=== PATIENT | male | born 1980 | race Two or more races ===

== ENCOUNTER 2020-08-01 04:38 | Inpatient (IN) | payer SELFPAY ==
[~2020-08-01] VITALS: Ht 177.8 cm; Wt 63.0 kg
[2020-08-01 04:52] VITALS: BP 128/75
--- NOTE | 2020-08-01 04:54 | NUR ---
ED Nurse Note: walked in to ed c/o abscess on left buttock onset 1 wk ago. vss, nad, aaox4, ambulatory, ermd at bedside
--- NOTE | 2020-08-01 04:57 | Emergency Room Report ---
History of Present Illness General Chief Complaint: Skin Rash/Abscess Source: Patient Present Illness HPI 40-year-old male with no past medical history. He presents with chief complaint of an abscess. Onset for about a week now. He started draining in the last couple days. It involves his left butt cheek. Painful. Worse with sitting down. Better with lying on his belly. He said he has intermittent subjective fever. No nausea no vomiting. Denies any trauma. Never had this problem before. Allergies: Coded Allergies: No Known Allergies (Unverified , 08/01/20) COVID-19 Screening Contact w/high risk pt: No Experienced COVID-19 symptoms?: No COVID-19 Testing performed CUSTOMER SERVICE CLERK: No Patient History Past Medical History: see triage record, old chart reviewed Past Surgical History: none Pertinent Family History: none Social History: Denies: smoking Immunizations: other Reviewed Nursing Documentation: PMH: Agreed; PSxH: Agreed Nursing Documentation-PMH Past Medical History: No Stated History Review of Systems Eye: Denies: eye pain, blurred vision ENT: Denies: ear pain, nose congestion, throat swelling Respiratory: Denies: cough, shortness of breath Cardiovascular: Denies: chest pain, palpitations Gastrointestinal: Denies: abdominal pain, diarrhea, nausea, vomiting Musculoskeletal: Denies: back pain, joint pain Skin: Denies: rash Neurological: Denies: headache, numbness Endocrine: Denies: increased thirst, increased urine Hematologic/Lymphatic: Denies: easy bruising All Other Systems: negative except mentioned in HPI Physical Exam Vital Signs Date Time Temp Pulse Resp B/P (MAP) Pulse Ox O2 Delivery O2 Flow Rate FiO2 08/01/20 04:46 98.8 97 18 126/71 (89) 99 Room Air Vitals normal Sp02 EP Interpretation: reviewed, normal General Appearance: well appearing, no apparent distress, alert Head: normocephalic, atraumatic Eyes: bilateral eye PERRL, bilateral eye EOMI ENT: hearing grossly normal, normal pharynx Neck: full range of motion, supple, no meningismus Respiratory: chest non-tender, lungs clear, normal breath sounds Cardiovascular #1: regular rate, rhythm, no murmur Gastrointestinal: normal bowel sounds, non tender, no mass, no organomegaly, no bruit, non-distended Rectal: other - Left buttock: Almost resolved buttocks is indurated and erythematous. There is a large ulcerated area of about 3 cm with purulent drainage. Musculoskeletal: back normal, normal range of motion, gait/station normal Psychiatric: mood/affect normal Procedures Incision and Drainage Incision and Drainage : Consent: Verbal Site: left buttock Blade Size: 15 I & D Procedure: betadine prep, sterile drapes applied Wound Location: other - buttock Anesthesia: 1% Lidocaine Volume Anesthetic (ccs): 15 Patient Tolerated: Well Complications: None Progress Area cleaned with Betadine. Local anesthetic 1% lidocaine without epinephrine. I debrided the necrotic area. There is extensive necrosis of the tissue. There is small to moderate amount of pus expressed. There is a lot of indurated tissue. Area then packed with gauze. Patient tolerated procedure well no problem. Medical Decision Making Diagnostic Impression: Primary Impression: Left buttock abscess ER Course Patient with extensive abscess and cellulitis of his left buttock. There is a large amount of necrotic tissue. This abscess involved 80 to 90% of the buttock area. It does not appear to be crossing midline. Because of the extensive area of abscess and necrotic tissue, I will order CT scan and put patient in for admission. He will probably need further debridement in the OR. Last Vital Signs Date Time Temp Pulse Resp B/P (MAP) Pulse Ox O2 Delivery O2 Flow Rate FiO2 08/01/20 04:52 98.7 96 18 128/75 99 Room Air Status: improved Disposition: ADMITTED INPATIENT Condition: Serious James Burrows MD Aug 01, 2020 04:57
[2020-08-01] MEDS ORDERED: Clindamycin 600mg 50 ML IV ONE (05:00)
[2020-08-01] MEDS ORDERED: HYDROmorphone 1mg/ml Carpuject ONE (05:23)
[2020-08-01] MEDS ORDERED: Vancomycin 1.5gm/NS Premix 275 ML IVPB ONE (05:45)
[2020-08-01] MEDS ORDERED: HYDROmorphone 1mg/ml Carpuject IVP ONE ×2 (05:45)
[2020-08-01] MEDS ORDERED: Omnipaque-300 100ml vial INJ ONE (05:45)
[2020-08-01 05:55] LABS: HEMATOCRIT 39.3 % (42.0-52.0); HEMOGLOBIN 13.3 G/DL (14.2-18.0); MEAN CORPUSCULAR VOLUME 96 FL (80-99); PLATELET COUNT 453 K/UL (150-450); RED CELL DISTRIBUTION WIDTH 12.7 % (11.6-14.8); WHITE BLOOD COUNT 19.1 K/UL (4.8-10.8)
[2020-08-01 06:03] LABS: ANION GAP 9 mmol/L (5-15); BLOOD UREA NITROGEN 22 mg/dL (7-18); CALCIUM 8.7 MG/DL (8.5-10.1); CARBON DIOXIDE 28 MMOL/L (21-32); CHLORIDE 97 MMOL/L (98-107); CREATININE 1.1 MG/DL (0.55-1.30); POTASSIUM 3.5 MMOL/L (3.5-5.1); SODIUM 134 MMOL/L (136-145)
--- NOTE | 2020-08-01 06:29 | NUR ---
ED Nurse Note: Patient taken to CT in stable condition
[2020-08-01 07:00] VITALS: BP 133/71
--- NOTE | 2020-08-01 07:06 | NUR ---
HAND-OFF: Report given to JAMISON Dos Santos.
--- NOTE | 2020-08-01 07:22 | NUR ---
ED Nurse Note: Report received from JAMISON Guardado. Pt lying comfortably in bed with no signs of distress. A+Ox4, respirations even and unlabored on room air. Vitals stable as documented. Pt receiving IV abx.
--- NOTE | 2020-08-01 07:28 | Diagnostic Imaging Report ---
EXAM: CT Abdomen and Pelvis With Intravenous Contrast CLINICAL HISTORY: ABSCESS TECHNIQUE: Axial computed tomography images of the abdomen and pelvis with intravenous contrast. CTDI is 3.6 mGy and DLP is 185.7 mGy-cm. One or more of the following dose reduction techniques were used: automated exposure control, adjustment of the mA and/or kV according to patient size, use of iterative reconstruction technique. COMPARISON: No relevant prior studies available. FINDINGS: Lung bases: Unremarkable. No mass. No consolidation. ABDOMEN: Liver: Unremarkable. No mass. Gallbladder and bile ducts: Unremarkable. No calcified stones. No ductal dilation. Pancreas: Unremarkable. No mass. No ductal dilation. Spleen: Unremarkable. No splenomegaly. Adrenals: Unremarkable. No mass. Kidneys and ureters: Unremarkable. No solid mass. No hydronephrosis. Stomach and bowel: Unremarkable. No obstruction. No mucosal thickening. PELVIS: Appendix: No findings to suggest acute appendicitis. Bladder: Unremarkable. No mass. Reproductive: Unremarkable as visualized. ABDOMEN and PELVIS: Intraperitoneal space: Unremarkable. No free air. No significant fluid collection. Bones/joints: No acute fracture. No dislocation. Soft tissues: There is a large cutaneous defect within the left gluteus, with adjacent subcutaneous fat stranding and edema. Packing material seen within the defect. Findings are consistent with a debrided abscess at this site. There is no adjacent soft tissue gas. Mild edema of the underlying left gluteus femi muscle. Vasculature: Unremarkable. No abdominal aortic aneurysm. Lymph nodes: Unremarkable. No enlarged lymph nodes. IMPRESSION: Debrided left gluteal abscess with packing material in place. Adjacent infiltrative changes within the left gluteal subcutaneous fat. No evidence of soft tissue gas.
[2020-08-01 09:00] VITALS: BP 124/73
--- NOTE | 2020-08-01 09:14 | NUR ---
ED Nurse Note: belongings list done. Pt had drug paraphernalia in his backpack including glass pipe. He also had a large tool and 3 e-cigaretes. All placed in security valuables bag. Will give to security. Receipt # [id number]
--- NOTE | 2020-08-01 09:27 | NUR ---
ED Nurse Note: Report given to JAMISON El on 4E. Valuable bag being endorsed to Nik[employer] d/t security [facility] warehouse consultant and she is in a meeting.
--- NOTE | 2020-08-01 09:35 | NUR ---
ED Nurse Note: Pt transferred safely to 4E. Pt transferred with all belongings. Valuables bag endorsed to accepting nurse.
--- NOTE | 2020-08-01 10:00 | NUR ---
NURSE NOTES: Received report from Raya in ER. Patient transferred via gurney, AAOx4, VS stable, able to make needs known. IV site patent and intact. Patient oriented to room. On room air, breathing is even and unlabored with no acute respiratory distress noted at this time. Skin is intact except for abscess on left buttocks, wound is swollen, with depth of 5cm and no presence of tunneling. RN changed wound dressing, rinses with NS, packed wound with wet gauze and covered with optifoam. Belongins were checked and signed with patient. Patient has drug paraphernalia and vape pens, as well as pliers and universal took kit. RN took belongings and placed in nursing station awaiting decision of security to take items. Patient is cooperative and ambulatory with steady gait. Bed is locked and placed in lowest position. Call light within reach. Will continue to monitor
[2020-08-01 12:00] VITALS: BP 121/73
[2020-08-01] MEDS: Piperacillin/Tazobactam 3.375 GM in NS 110 ML IVPB SCH ×2 (13:15→21:17)
--- NOTE | 2020-08-01 13:30 | Consultation ---
History of Present Illness General Date patient seen: Aug 01, 2020 Reason for Hospitalization: Skin Rash/Abscess Present Illness HPI This is a 40-year-old male otherwise healthy presents [facility] with left buttock cheek abscess. About a week. States has been growing causing 7 days ago where and worsening. Daughter get better on its own but it did not. In emergency department had debridement by ED physician for necrotic abscess wound. Surgical to eval and assist with care upon admission. Patient on IV antibiotics. Allergies: Coded Allergies: No Known Allergies (Unverified , 08/01/20) COVID-19 Screening Contact w/high risk pt: No Experienced COVID-19 symptoms?: No Patient History History Provided By: Patient Healthcare decision maker Resuscitation status Advanced Directive on File Past Medical/Surgical History Past Medical/Surgical History: (1) Left buttock abscess Review of Systems Review of Symptoms General ROS: no weight loss or fever Psychological ROS: no depression or mood changes, no memory loss Ophthalmic ROS: no visual changes or eye irritation ENT ROS: no nasal congestion, hearing loss, dizziness Allergy and Immunology ROS: no allergic symptoms or urticaria Hematological and Lymphatic ROS: no swollen glands, unusual bleeding or bruising Endocrine ROS: no polyuria, polydipsia, weight changes, temperature intolerance Respiratory ROS: no cough, shortness of breath, or wheezing Cardiovascular ROS: no chest pain or dyspnea on exertion Gastrointestinal ROS: denies abdominal pain, bright red blood in stool. Musculoskeletal ROS: no myalgias or arthralgias Neurological ROS: no TIA or stroke symptoms Dermatological ROS: no new or changing skin lesions, rashes or pruritis Physical Exam Physical Exam General appearance: alert, cooperative, no distress, appears stated age Head: Normocephalic, without obvious abnormality, atraumatic Eyes: conjunctivae/corneas clear. PERRL, EOM's intact. Fundi benign Throat: Lips, mucosa, and tongue normal. Teeth and gums normal Neck: supple, symmetrical, trachea midline, no adenopathy, thyroid: not enlarged, symmetric, no tenderness/mass/nodules, no carotid bruit and no JVD Lungs: clear to auscultation bilaterally Heart: regular rate and rhythm, S1, S2 normal, no murmur, click, rub or gallop Abdomen: soft, non-tender. Bowel sounds normal. No masses, no organomegaly Extremities: extremities normal, atraumatic, no cyanosis or edema Pulses: 2+ and symmetric Skin: Skin see below Neurologic: Grossly normal Last 24 Hour Vital Signs Date Time Temp Pulse Resp B/P (MAP) Pulse Ox O2 Delivery O2 Flow Rate FiO2 08/01/20 12:00 97.5 80 18 121/73 (89) 99 08/01/20 09:58 Room Air 08/01/20 09:35 98.3 89 20 133/88 98 Room Air 08/01/20 09:00 98.1 93 20 124/73 96 Room Air 08/01/20 07:00 98.5 91 18 133/71 98 Room Air 08/01/20 06:14 98.7 08/01/20 06:14 98.7 08/01/20 04:52 98.7 96 18 128/75 99 Room Air 08/01/20 04:46 98.8 97 18 126/71 (89) 99 Room Air Intake and Output 07/31/20 08/01/20 19:00 07:00 Intake Total 0 ml Balance 0 ml Intake Oral 0 ml Laboratory Tests Test 08/01/20 05:35 White Blood Count 19.1 K/UL (4.8-10.8) H Red Blood Count 4.10 M/UL (4.70-6.10) L Hemoglobin 13.3 G/DL (14.2-18.0) L Hematocrit 39.3 % (42.0-52.0) L Mean Corpuscular Volume 96 FL (80-99) Mean Corpuscular Hemoglobin 32.4 PG (27.0-31.0) H Mean Corpuscular Hemoglobin Concent 33.8 G/DL (32.0-36.0) Red Cell Distribution Width 12.7 % (11.6-14.8) Platelet Count 453 K/UL (150-450) H Mean Platelet Volume 4.6 FL (6.5-10.1) L Neutrophils (%) (Auto) % (45.0-75.0) Lymphocytes (%) (Auto) % (20.0-45.0) Monocytes (%) (Auto) % (1.0-10.0) Eosinophils (%) (Auto) % (0.0-3.0) Basophils (%) (Auto) % (0.0-2.0) Differential Total Cells Counted 100 Neutrophils % (Manual) 80 % (45-75) H Lymphocytes % (Manual) 12 % (20-45) L Monocytes % (Manual) 8 % (1-10) Eosinophils % (Manual) 0 % (0-3) Basophils % (Manual) 0 % (0-2) Band Neutrophils 0 % (0-8) Platelet Estimate Adequate Platelet Morphology Normal Sodium Level 134 MMOL/L (136-145) L Potassium Level 3.5 MMOL/L (3.5-5.1) Chloride Level 97 MMOL/L (98-107) L Carbon Dioxide Level 28 MMOL/L (21-32) Anion Gap 9 mmol/L (5-15) Blood Urea Nitrogen 22 mg/dL (7-18) H Creatinine 1.1 MG/DL (0.55-1.30) Estimat Glomerular Filtration Rate > 60 mL/min (>60) Glucose Level 122 MG/DL (74-106) H Lactic Acid Level 1.60 mmol/L (0.4-2.0) Calcium Level 8.7 MG/DL (8.5-10.1) Height (Feet): 5 Height (Inches): 10.00 Weight (Pounds): 160 Medications Current Medications Medications (Trade) Dose Ordered Sig/Harmeet Route PRN Reason Start Time Stop Time Status Last Admin Dose Admin Acetaminophen (Tylenol) 650 mg Q4H PRN ORAL Mild Pain (Pain Scale 1-3) 08/01/20 10:45 08/31/20 10:44 Al Hydroxide/Mg Hydroxide (Mylanta) 30 ml Q4H PRN ORAL acid reflux 08/01/20 10:45 08/31/20 10:44 Pantoprazole (Protonix) 40 mg DAILY ORAL 08/01/20 10:45 08/31/20 10:44 08/01/20 11:02 Piperacillin Sod/ Tazobactam Sod 3.375 gm/Sodium Chloride 110 ml @ 27.5 mls/hr Q8HR IVPB 08/01/20 14:00 08/08/20 13:59 08/01/20 13:15 [facility] 1 ea DAILY PRN MISC Per rx protocol 08/01/20 10:45 08/31/20 10:44 Vancomycin/Sodium Chloride 275 ml @ 137.5 mls/ hr Q12HR@0600,1800 IVPB 08/01/20 18:00 08/06/20 17:59 Assessment/Plan Problem List: (1) Left buttock abscess Assessment & Plan: This is a 40-year-old male with a large left buttock abscess which grew to potential with necrotic of the skin approximately 4 cm x 4 cm an abscess cavity which required drainage in emergency department and debridement which was done by emergency department physician. Right now there is an open wound in the left buttock cheek approximately 4 cm x 4 cm of 4 cm deep with the nonviable tissue already removed and now significant cellulitis and edema and erythema and tenderness. Patient admitted further care and management. Wound cleansed at bedside and packing and dressings applied. Continue with wet-to-dry packing and dressings 3 times daily and as needed saturation. Will follow progression. If required further debridement will proceed otherwise we will continue with local wound care until cellulitis resolves. Thank you for let me participation's care will follow with recommendations continue antibiotics per infectious disease ABDOMEN: Liver: Unremarkable. No mass. Gallbladder and bile ducts: Unremarkable. No calcified stones. No ductal dilation. Pancreas: Unremarkable. No mass. No ductal dilation. Spleen: Unremarkable. No splenomegaly. Adrenals: Unremarkable. No mass. Kidneys and ureters: Unremarkable. No solid mass. No hydronephrosis. Stomach and bowel: Unremarkable. No obstruction. No mucosal thickening. PELVIS: Appendix: No findings to suggest acute appendicitis. Bladder: Unremarkable. No mass. Reproductive: Unremarkable as visualized. ABDOMEN and PELVIS: Intraperitoneal space: Unremarkable. No free air. No significant fluid collection. Bones/joints: No acute fracture. No dislocation. Soft tissues: There is a large cutaneous defect within the left gluteus, with adjacent subcutaneous fat stranding and edema. Packing material seen within the defect. Findings are consistent with a debrided abscess at this site. There is no adjacent soft tissue gas. Mild edema of the underlying left gluteus femi muscle. Vasculature: Unremarkable. No abdominal aortic aneurysm. Lymph nodes: Unremarkable. No enlarged lymph nodes. IMPRESSION: Debrided left gluteal abscess with packing material in place. Adjacent infiltrative changes within the left gluteal subcutaneous fat. No evidence of soft tissue gas. ICD Codes: L02.31 - Cutaneous abscess of buttock SNOMED: [id number] Felix Farias Aug 01, 2020 13:30
--- NOTE | 2020-08-01 14:45 | Consultation ---
DATE OF CONSULTATION: 08/01/2020 INFECTIOUS DISEASE CONSULTATION CONSULTING PHYSICIAN: Arlene Cabello MD. REFERRING PHYSICIAN: Nemesio River MD. REASON FOR CONSULTATION: Buttock abscess. HISTORY OF PRESENTING ILLNESS: This is a 40-year-old gentleman with history of appendectomy and hernia repair, who came in with left buttock pain. He was found to have an abscess, which started draining. He underwent a CT scan, which showed an extensive abscess with necrotic tissue. An Infectious Diseases consultation has been obtained for antibiotics. PAST MEDICAL HISTORY: 1. History of appendectomy. 2. History of hernia repair. SOCIAL HISTORY: He is a smoker. He drinks alcohol. He smokes marijuana. FAMILY HISTORY: Noncontributory. REVIEW OF SYSTEMS: RESPIRATORY: No fever, chills, cough, shortness of breath, or chest pain. CARDIAC: No chest pain. No palpitation. No dizziness. No syncope. GASTROINTESTINAL: No nausea. No vomiting. He does have left buttock pain. No diarrhea. MEDICATIONS: As an inpatient, he is on vancomycin, Zosyn, Protonix, Mylanta, Tylenol. ALLERGIES: No known drug allergies. PHYSICAL EXAMINATION: VITAL SIGNS: Temperature 98.1 T-max of 98.8, pulse 93, respiratory rate 20, and blood pressure 124/73. O2 saturation of 96% on room air. HEENT: Pupils are equally reactive to light and accommodation. Mouth appears clean without thrush. NECK: Supple. No adenopathy. No JVD. CARDIOVASCULAR: Regular rate and rhythm. No murmurs. LUNGS: Clear to auscultation bilaterally. No crackles. No wheezes. ABDOMEN: Soft, nontender. Left buttock drainage noted. EXTREMITIES: No cyanosis, no clubbing, no edema. LABORATORY AND DIAGNOSTIC DATA: White count of 19.1, hemoglobin 13.3, hematocrit 39.3, MCV 96, platelet count of 453,000 with neutrophils of 80%. Sodium 134, potassium 3.5, chloride 97, bicarb 28, BUN 22, creatinine 1.1. Glucose 122. Calcium of 8.7. Wound cultures are pending. CT pelvis showing debrided left gluteal abscess with packing, adjacent infiltrative changes noted. ASSESSMENT: This is a 40-year-old gentleman with history of inguinal hernia repair and appendectomy, who comes in with left buttock swelling and drainage and is found to have, 1. Left buttock abscess. Cultures are pending. 2. History of appendectomy. 3. Leukocytosis. PLAN: 1. Continue IV vancomycin and Zosyn. 2. Surgery evaluation is pending. 3. We will follow up cultures and adjust antibiotics accordingly. I would like to thank Dr. River for this consultation. Arlene Cabello M.D. DR: TEJAS JOB#: [id number] CC:
[2020-08-01] MEDS: Vancomycin 1.5gm/NS Premix q24h IVPB SCH (17:17)
--- NOTE | 2020-08-01 18:00 | History and Physical Report ---
DATE OF ADMISSION: 08/01/2020 REASON FOR ADMISSION: Buttock abscess. HISTORY: This is a 40-year-old gentleman with history of prior appendectomy, hernia repair. The patient presents with left buttock pain. He is noted to have significant abscess that is indurated as well. The patient underwent a CT scan confirming the abscess with necrotic tissue. The patient underwent debridement in the emergency room and now will be admitted for further antibiotics and further surgical evaluation. PAST MEDICAL HISTORY: Appendectomy, hernia repair. SOCIAL HISTORY: The patient is a smoker. He does drink. FAMILY HISTORY: Noncontributory. REVIEW OF SYSTEMS: Otherwise negative. PHYSICAL EXAMINATION: GENERAL: A well-developed male. The patient is currently afebrile. VITAL SIGNS: Stable. LUNGS: Otherwise clear. CARDIAC: S1, S2. Regular rate and rhythm. ABDOMEN: Soft, nontender. EXTREMITIES: No edema. Buttock is dressed at this time. LABORATORY DATA: Reviewed. White count 19. Sodium 134, BUN 22. CT pelvis, left gluteal abscess. IMPRESSION: Left buttock abscess, status post incision and drainage, appendectomy, leukocytosis, possible sepsis. RECOMMENDATION: ID evaluation, surgical evaluation with debridement as needed. Follow up cultures and exam. Follow up labs, and we will discuss with consultants as to further recommendations and plan of care. Nemesio River M.D. DR: JEWELL JOB#: [id number] CC:
--- NOTE | 2020-08-01 19:13 | NUR ---
NURSE HAND-OFF: Important Events on Shift: admission, wound dressing done Patient Status: stable Diet: regular Pending Orders: n/a Pending Results/Labs:n/a Pending MD notification:n/a Latest Vital Signs: Temperature 97.5 , Pulse 80 , B/P 121 /73 , Respiratory Rate 18 , O2 SAT 99 , Room Air, O2 Flow Rate . Vital Sign Comment: stable Latest Argueta Fall Score: 35 Fall Risk: Medium Risk Safety Measures: Call light Within Reach, Bed Alarm , Side Rails Side Rails x2, Bed position Low and Locked. Fall Precautions: Patient Fall Education Report given to JAMISON Rodriguez.
--- NOTE | 2020-08-01 19:30 | NUR ---
NURSE NOTES: Patient awake in bed, alert and oriented x4, on room air. With IV access on right forearm. Instructed to use call light for assistance. Bed in lowest and lock engaged. Will continue to monitor.
[2020-08-01 20:00] VITALS: BP 119/74
[2020-08-02] VITALS: BP 123/68
[2020-08-02 04:00] VITALS: BP 109/73
[2020-08-02] MEDS: Vancomycin 1.5gm/NS Premix q24h IVPB SCH ×2 (04:43→18:18)
--- NOTE | 2020-08-02 06:30 | NUR ---
NURSE NOTES: Dressing changed.
[2020-08-02] MEDS: Piperacillin/Tazobactam 3.375 GM in NS 110 ML IVPB SCH ×2 (06:34→13:32)
[2020-08-02 06:47] LABS: ANION GAP 6 mmol/L (5-15); BLOOD UREA NITROGEN 9 mg/dL (7-18); CALCIUM 8.3 MG/DL (8.5-10.1); CARBON DIOXIDE 29 MMOL/L (21-32); CHLORIDE 102 MMOL/L (98-107); POTASSIUM 3.2 MMOL/L (3.5-5.1); SODIUM 137 MMOL/L (136-145)
[2020-08-02 07:35] LABS: BASOPHILS % (AUTO) 1.3 % (0.0-2.0); EOSINOPHILS % (AUTO) 1.9 % (0.0-3.0); HEMATOCRIT 39.6 % (42.0-52.0); HEMOGLOBIN 13.2 G/DL (14.2-18.0); MEAN CORPUSCULAR VOLUME 93 FL (80-99); MONOCYTES % (AUTO) 7.6 % (1.0-10.0); NEUTROPHILS % (AUTO) 69.1 % (45.0-75.0); PLATELET COUNT 450 K/UL (150-450); RED BLOOD COUNT 4.28 M/UL (4.70-6.10); RED CELL DISTRIBUTION WIDTH 12.7 % (11.6-14.8); WHITE BLOOD COUNT 11.3 K/UL (4.8-10.8)
--- NOTE | 2020-08-02 07:50 | NUR ---
NURSE NOTES: PT AXOX4, CALM, RESTING IN BED. PT DENIES PAIN OR SOB/DIZZINESS WHEN AMBULATING TO BATHROOM. PT EDUCATED ON CARE PLAN FOR TODAY. PT VERBALIZED UNDERSTANDING. CALL LIGHT WITHIN REACH. BED IN LOWEST POSITION WITH BEDSIDE RAILS X2 RAISED. WILL CONTINUE TO MONITOR.
--- NOTE | 2020-08-02 07:55 | NUR ---
NURSE HAND-OFF: Important Events on Shift: Dressing changed, antibiotic treatment Patient Status: Diet: Pending Orders: Pending Results/Lab: Pending MD notification: Latest Vital Signs: Temperature 97.9 , Pulse 86 , B/P 109 /73 , Respiratory Rate 20 , O2 SAT 98 , Room Air, O2 Flow Rate . Vital Sign Comment: Latest Argueta Fall Score: 35 Fall Risk: Medium Risk Safety Measures: Call light Within Reach, Bed Alarm , Side Rails Side Rails x2, Bed position Low and Locked. Fall Precautions: Yellow Socks Door Sign Patient Fall Education Report given to JAMISON Oliva.
[2020-08-02 08:00] VITALS: BP 108/65
--- NOTE | 2020-08-02 09:54 | General Progress Note ---
Subjective Allergies: Coded Allergies: No Known Allergies (Unverified , 08/01/20) Subjective care noted no change overall Objective Last 24 Hour Vital Signs Date Time Temp Pulse Resp B/P (MAP) Pulse Ox O2 Delivery O2 Flow Rate FiO2 08/02/20 08:00 98.2 97 16 108/65 (79) 97 08/02/20 04:00 97.9 86 20 109/73 (85) 98 08/02/20 00:00 98.2 87 18 123/68 (86) 98 08/01/20 21:00 Room Air 08/01/20 20:00 99.0 92 22 119/74 (89) 100 08/01/20 12:00 97.5 80 18 121/73 (89) 99 08/01/20 09:58 Room Air Intake and Output 08/01/20 08/02/20 19:00 07:00 Intake Total 840 ml 300 ml Balance 840 ml 300 ml Intake Oral 840 ml 300 ml # Voids 2 2 Laboratory Tests 08/02/20 06:11: White Blood Count 11.3H, Red Blood Count 4.28L, Hemoglobin 13.2L, Hematocrit 39.6L, Mean Corpuscular Volume 93, Mean Corpuscular Hemoglobin 30.8, Mean Corpuscular Hemoglobin Concent 33.2, Red Cell Distribution Width 12.7, Platelet Count 450, Mean Platelet Volume 4.7L, Neutrophils (%) (Auto) 69.1, Lymphocytes (%) (Auto) 20.0, Monocytes (%) (Auto) 7.6, Eosinophils (%) (Auto) 1.9, Basophils (%) (Auto) 1.3, Sodium Level 137, Potassium Level 3.2L, Chloride Level 102, Carbon Dioxide Level 29, Anion Gap 6, Blood Urea Nitrogen 9, Creatinine 1.0, E stimat Glomerular Filtration Rate > 60, Glucose Level 172H, Calcium Level 8.3L Height (Feet): 5 Height (Inches): 10.00 Weight (Pounds): 160 Assessment/Plan Assessment/Plan: IMPRESSION: Left buttock abscess, status post incision and drainage, appendectomy, leukocytosis, possible sepsis. RECOMMENDATION: ID evaluation, surgical evaluation with debridement as needed. Follow up cultures and exam. Follow up labs, and we will discuss with consultants as to further recommendations and plan of care. Nemesio River MD Aug 02, 2020 09:54
[2020-08-02 12:00] VITALS: BP 119/77
--- NOTE | 2020-08-02 13:57 | NUR ---
NURSE NOTES: LEFT BUTTOCK DRESSING CHANGE DONE AT BEDSIDE AT 1100 HRS. PT TOLERATED WELL. IN NO APPARENT DISTRESS AT THIS TIME. WILL CONTINUE TO MONITOR.
--- NOTE | 2020-08-02 14:41 | NUR ---
CASE MANAGEMENT:INITIAL REVIEW 40 YR OLD MALE WALKED IN TO ER CC;SKIN RASH. ABSCESS. SI;LEFT BUTTOCK ABSCESS. 98.7 97 18 133/71 96% ON RA WBC 19.1 PLT 453 NA 134 BUN 22 WOUND CX ~ FEW GRAM POSITIVE COCCI STAPHYLOCOCCUS AUREUS GROWTH: 4+ PELVIS CT ~ Debrided left gluteal abscess with packing material in place. Adjacent infiltrative changes within the left gluteal subcutaneous fat. No evidence of soft tissue gas. IS;CLINDAMYCIN PHOSPHATE IV VANCOMYCIN IV ZOFRAN IV DILAUDID IV X3 ADMITTED TO MED SURG MED SURG STATUS DCP;PATIENT REPORTS HOMELESSNESS
--- NOTE | 2020-08-02 15:52 | Infectious Diseases Prog Note ---
Assessment/Plan Assessment/Plan A: 1. Left buttock abscess. Cultures : Staph aureus 2. History of appendectomy. 3. Leukocytosis. PLAN: 1. Continue IV vancomycin 2. Discontinue Zosyn. 3. Will f/u wound culture Subjective ROS Limited/Unobtainable: Yes Constitutional: Denies: fever Allergies: Coded Allergies: No Known Allergies (Unverified , 08/01/20) Objective Last 24 Hour Vital Signs Date Time Temp Pulse Resp B/P (MAP) Pulse Ox O2 Delivery O2 Flow Rate FiO2 08/02/20 12:00 98.1 69 17 119/77 (91) 99 08/02/20 09:00 Room Air 08/02/20 08:00 98.2 97 16 108/65 (79) 97 08/02/20 04:00 97.9 86 20 109/73 (85) 98 08/02/20 00:00 98.2 87 18 123/68 (86) 98 08/01/20 21:00 Room Air 08/01/20 20:00 99.0 92 22 119/74 (89) 100 Height (Feet): 5 Height (Inches): 10.00 Weight (Pounds): 160 General Appearance: no acute distress HEENT: mucous membranes moist Respiratory/Chest: lungs clear Cardiovascular: normal rate Abdomen: soft, non tender Extremities: no edema Skin: other - left buttock draied abscess Neurologic/Psychiatric: other - sleeping Microbiology Date/Time Source Procedure Growth Status 08/01/20 05:35 Other Gram Stain - Final Resulted 08/01/20 05:35 Wound Culture - Preliminary Staphylococcus Aureus Resulted Laboratory Tests Test 08/02/20 06:11 White Blood Count 11.3 K/UL (4.8-10.8) H Red Blood Count 4.28 M/UL (4.70-6.10) L Hemoglobin 13.2 G/DL (14.2-18.0) L Hematocrit 39.6 % (42.0-52.0) L Mean Corpuscular Volume 93 FL (80-99) Mean Corpuscular Hemoglobin 30.8 PG (27.0-31.0) Mean Corpuscular Hemoglobin Concent 33.2 G/DL (32.0-36.0) Red Cell Distribution Width 12.7 % (11.6-14.8) Platelet Count 450 K/UL (150-450) Mean Platelet Volume 4.7 FL (6.5-10.1) L Neutrophils (%) (Auto) 69.1 % (45.0-75.0) Lymphocytes (%) (Auto) 20.0 % (20.0-45.0) Monocytes (%) (Auto) 7.6 % (1.0-10.0) Eosinophils (%) (Auto) 1.9 % (0.0-3.0) Basophils (%) (Auto) 1.3 % (0.0-2.0) Sodium Level 137 MMOL/L (136-145) Potassium Level 3.2 MMOL/L (3.5-5.1) L Chloride Level 102 MMOL/L (98-107) Carbon Dioxide Level 29 MMOL/L (21-32) Anion Gap 6 mmol/L (5-15) Blood Urea Nitrogen 9 mg/dL (7-18) Creatinine 1.0 MG/DL (0.55-1.30) Estimat Glomerular Filtration Rate > 60 mL/min (>60) Glucose Level 172 MG/DL (74-106) H Calcium Level 8.3 MG/DL (8.5-10.1) L Current Medications Medications (Trade) Dose Ordered Sig/Harmeet Route PRN Reason Start Time Stop Time Status Last Admin Dose Admin Acetaminophen (Tylenol) 650 mg Q4H PRN ORAL Mild Pain (Pain Scale 1-3) 08/01/20 10:45 08/31/20 10:44 Al Hydroxide/Mg Hydroxide (Mylanta) 30 ml Q4H PRN ORAL acid reflux 08/01/20 10:45 08/31/20 10:44 Pantoprazole (Protonix) 40 mg DAILY ORAL 08/01/20 10:45 08/31/20 10:44 08/02/20 08:56 Piperacillin Sod/ Tazobactam Sod 3.375 gm/Sodium Chloride 110 ml @ 27.5 mls/hr Q8HR IVPB 08/01/20 14:00 08/08/20 13:59 08/02/20 13:32 Vancomycin HCl ([facility] pharmacy to dose) 1 ea DAILY PRN MISC Per rx protocol 08/01/20 10:45 08/31/20 10:44 Vancomycin/Sodium Chloride 275 ml @ 137.5 mls/ hr Q12HR@0600,1800 IVPB 08/01/20 18:00 08/06/20 17:59 08/02/20 04:43 Osvaldo Guardado MD Aug 02, 2020 15:52
[2020-08-02 16:00] VITALS: BP 121/82
--- NOTE | 2020-08-02 16:28 | Surgery Progress Note ---
Surgery Progress Note Subjective Additional Comments labs improving no acute events Objective Last 24 Hour Vital Signs Date Time Temp Pulse Resp B/P (MAP) Pulse Ox O2 Delivery O2 Flow Rate FiO2 08/02/20 12:00 98.1 69 17 119/77 (91) 99 08/02/20 09:00 Room Air 08/02/20 08:00 98.2 97 16 108/65 (79) 97 08/02/20 04:00 97.9 86 20 109/73 (85) 98 08/02/20 00:00 98.2 87 18 123/68 (86) 98 08/01/20 21:00 Room Air 08/01/20 20:00 99.0 92 22 119/74 (89) 100 I&O Intake and Output 08/01/20 08/02/20 19:00 07:00 Intake Total 840 ml 300 ml Balance 840 ml 300 ml Intake Oral 840 ml 300 ml # Voids 2 2 Dressing: saturated Cardiovascular: RSR Respiratory: decreased breath sounds Abdomen: soft, non-tender, present bowel sounds Extremities: no edema, no tenderness, no cyanosis Laboratory Tests Test 08/02/20 06:11 White Blood Count 11.3 K/UL (4.8-10.8) H Red Blood Count 4.28 M/UL (4.70-6.10) L Hemoglobin 13.2 G/DL (14.2-18.0) L Hematocrit 39.6 % (42.0-52.0) L Mean Corpuscular Volume 93 FL (80-99) Mean Corpuscular Hemoglobin 30.8 PG (27.0-31.0) Mean Corpuscular Hemoglobin Concent 33.2 G/DL (32.0-36.0) Red Cell Distribution Width 12.7 % (11.6-14.8) Platelet Count 450 K/UL (150-450) Mean Platelet Volume 4.7 FL (6.5-10.1) L Neutrophils (%) (Auto) 69.1 % (45.0-75.0) Lymphocytes (%) (Auto) 20.0 % (20.0-45.0) Monocytes (%) (Auto) 7.6 % (1.0-10.0) Eosinophils (%) (Auto) 1.9 % (0.0-3.0) Basophils (%) (Auto) 1.3 % (0.0-2.0) Sodium Level 137 MMOL/L (136-145) Potassium Level 3.2 MMOL/L (3.5-5.1) L Chloride Level 102 MMOL/L (98-107) Carbon Dioxide Level 29 MMOL/L (21-32) Anion Gap 6 mmol/L (5-15) Blood Urea Nitrogen 9 mg/dL (7-18) Creatinine 1.0 MG/DL (0.55-1.30) Estimat Glomerular Filtration Rate > 60 mL/min (>60) Glucose Level 172 MG/DL (74-106) H Calcium Level 8.3 MG/DL (8.5-10.1) L Plan Problems: (1) Left buttock abscess Assessment & Plan: This is a 40-year-old male with a large left buttock abscess which grew to potential with necrotic of the skin approximately 4 cm x 4 cm an abscess cavity which required drainage in emergency department and debridement which was done by emergency department physician. Right now there is an open wound in the left buttock cheek approximately 4 cm x 4 cm of 4 cm deep with the nonviable tissue already removed and now significant cellulitis and edema and erythema and tenderness. Patient admitted further care and management. Wound cleansed at bedside and packing and dressings applied. Continue with wet-to-dry packing and dressings 3 times daily and as needed saturation. Will follow progression. If required further debridement will proceed otherwise we will continue with local wound care until cellulitis resolves. Thank you for let me participation's care will follow with recommendations continue antibiotics per infectious disease ABDOMEN: Liver: Unremarkable. No mass. Gallbladder and bile ducts: Unremarkable. No calcified stones. No ductal dilation. Pancreas: Unremarkable. No mass. No ductal dilation. Spleen: Unremarkable. No splenomegaly. Adrenals: Unremarkable. No mass. Kidneys and ureters: Unremarkable. No solid mass. No hydronephrosis. Stomach and bowel: Unremarkable. No obstruction. No mucosal thickening. PELVIS: Appendix: No findings to suggest acute appendicitis. Bladder: Unremarkable. No mass. Reproductive: Unremarkable as visualized. ABDOMEN and PELVIS: Intraperitoneal space: Unremarkable. No free air. No significant fluid collection. Bones/joints: No acute fracture. No dislocation. Soft tissues: There is a large cutaneous defect within the left gluteus, with adjacent subcutaneous fat stranding and edema. Packing material seen within the defect. Findings are consistent with a debrided abscess at this site. There is no adjacent soft tissue gas. Mild edema of the underlying left gluteus femi muscle. Vasculature: Unremarkable. No abdominal aortic aneurysm. Lymph nodes: Unremarkable. No enlarged lymph nodes. IMPRESSION: Debrided left gluteal abscess with packing material in place. Adjacent infiltrative changes within the left gluteal subcutaneous fat. No evidence of soft tissue gas. Felix Farias Aug 02, 2020 16:28
--- NOTE | 2020-08-02 16:51 | NUR ---
MACHINE HAND NOTE PT is identified as homeless. YASMINE met w/ pt and completed the psychosocial assessment. Pt presents as A&O4x. Pt has been homeless for a year. Pt is currently unemployed. His last temporary job was ended last week. Pt is ambulatory w/o DME and independent w/ ADLs and IADLs. Pt plans to go to his friend's house located on [address] [facility]. PT declined to provide the address/contact information. Pt reports his friend will be working, thus not able to answer the call. Pt reports he plans to take a bus upon [place]. Pt uses tobacco, social ETOH drink and denies other substance abuse. Pt declined counseling/tx intervention. Pt denies having mental health issue. PT declined to receive community resource packet. PT has appropriate clothing. Pt does not share any concern/needs. SW to F/U as needed. Pt will dc to his friend's house via public transportation. Emergency contact: Pamela (girlfriend) [phone] Addendum: 08/02/20 at 1657 by THEA UNDERWOOD PT is single, and has no children. PT has no family emergency contact. PT declined a placement assistance offered by this YASMINE. Addendum: 08/02/20 at 1659 by THEA UNDERWOOD PT has been staying at different friend's places. YASMINE explained negative ramification of unlicensed facilities.
--- NOTE | 2020-08-02 18:16 | NUR ---
NURSE NOTES: RN SPOKE TO GISSELLE IN PHARMACY. OK TO ADMINISTER IV VANCOMYCIN 1.5GM FOR 1800HRS.
--- NOTE | 2020-08-02 18:30 | NUR ---
NURSE NOTES: LEFT BUTTOCK WOUND DRESSING CHANGED ORDERED. DR RAMIREZ WAS AT BEDSIDE AND EVALUATED WOUND. NO NEW ORDERS.
--- NOTE | 2020-08-02 19:27 | NUR ---
NURSE HAND-OFF: Important Events on Shift: DRESSING CHANGE LEFT BUTTOCK CHANGED TWICE. FIRST DRESSING CHANGE DONE EARLY THIS MORNING BY TRACK LAYER. Patient Status: STABLE Diet: REGULAR Pending Orders: N/A Pending Results/Labs:N/A Pending MD notification:N/A Latest Vital Signs: Temperature 98.1 , Pulse 77 , B/P 121 /82 , Respiratory Rate 18 , O2 SAT 98 , Room Air, O2 Flow Rate . Vital Sign Comment: STABLE Latest Argueta Fall Score: 35 Fall Risk: Medium Risk Safety Measures: Call light Within Reach, Bed Alarm , Side Rails Side Rails x2, Bed position Low and Locked. Fall Precautions: Yellow Socks Door Sign Patient Fall Education Report given to Trevor GUTHRIE RN.
--- NOTE | 2020-08-02 19:30 | NUR ---
NURSE NOTES: Patient awake in bed, with IV intact on the left forearm, asymptomatic and patent. Call light and needs in reach. Bed in lowest and lock engaged. Will continue to monitor.
[2020-08-02 20:00] VITALS: BP 124/75
[2020-08-03] VITALS: BP 125/77
[2020-08-03] MEDS ORDERED: Vancomycin 1.25gm/NS Premix IVPB SCH (02:00)
[2020-08-03 04:00] VITALS: BP 116/73
--- NOTE | 2020-08-03 06:42 | NUR ---
NURSE HAND-OFF: Important Events on Shift: Dressing changed x2 Patient Status: Stable Diet: Regular Pending Orders: 08/03 Vanco trough 1700 Pending Results/Labs: Pending MD notification: Latest Vital Signs: Temperature 98.2 , Pulse 85 , B/P 116 /73 , Respiratory Rate 18 , O2 SAT 98 , Room Air, O2 Flow Rate . Vital Sign Comment: stable Latest [place] Fall Score: 35 Fall Risk: Medium Risk Safety Measures: Call light Within Reach, Bed Alarm , Side Rails Side Rails x2, Bed position Low and Locked. Fall Precautions: Yellow Socks Door Sign Patient Fall Education Report given to JAMISON Oliva.
--- NOTE | 2020-08-03 07:30 | NUR ---
NURSE NOTES: RN WAS MAKING INITIAL ROUNDS DURING CHANGE OF SHIFT. PT WAS LEAVING HIS ROOM DRESSED IN HIS CLOTHES. RN ASKED PT IF HE WAS LEAVING THE HOSPITAL. PT STATED YES HE WANTED TO LEAVE. RN EDUCATED PT THE IMPORTANCE OF COMPLETING HIS IV ANTIBIOTIC THERAPY DUE TO REMOVAL OF ABSCESS FROM LEFT BUTTOCK. PT DECLINED TO REPLY, JUST LAUGHED. RN EDUCATED PT TO KEEP DEBRIDEMENT SITE CLEAN AND DRY. PT ATTEMPTED TO LEAVE WITH IV ACCESS. PT ALLOWED RN TO REMOVE IV ACCESS. PT DID NOT WANT RN TO CHECK BELONGINGS. PT STATED "I JUST WANT TO LEAVE". RN MADE DR ORDAZ AND DR RAMIREZ AWARE. VENKAT CEVALLOS MADE AWARE AND AIR BRAKE MECHANIC RONNIE MADE AWARE.
--- NOTE | 2020-08-05 12:28 | CDS Physician Query ---
Clarification is required for compliance, coding accuracy, and to reflect severity of illness for this patient. Dear Dr. Nemesio River M.D. Date: 08/05/20 CDI/CDS Name: Michael Martinez Clinical Documentation Statement: "40-year-old gentleman with history of prior appendectomy, hernia repair. The patient presents with left buttock pain." [ H& P Nemesio River MD 08/01/2020 16:00] IMPRESSION: Left buttock abscess, status post incision and drainage, appendectomy, leukocytosis, possible sepsis. Clinical Finding Show: LAB (08/01) : Chem: Sodium 134 [136-145], Chloride 97 [ 98-107] Medication: Sodium Chloride IV Please Clarify the diagnosis associated with this finding: [ ] Hyponatremia [ ] Hypochloremia [ x] Finding no significant [ ] Other: Diagnosis: Present on Admission: [x] Yes [] No [] Clinically Undetermined Physician signature Date Please also document in your Progress Notes and/or Discharge Summary and indicate if the condition was present on admission. MTDD
--- NOTE | 2020-08-05 12:56 | Discharge Summary ---
Discharge Summary Discharge Summary _ DATE OF ADMISSION: 08/01/2020 DATE OF DISCHARGE: 08/03/2020 CONSULTANTS: Dr. Felix Cabello BRIEF HOSPITAL COURSE: Patient is a 40-year-old gentleman, with history of prior appendectomy, hernia repair, homeless, presented with left buttock pain. Upon evaluation at ED, vital signs were stable. Evaluation revealed left buttock with large ulcerated area about 3 cm with purulent discharge. Area was cleaned with Betadine. Debridement of the necrotic area was done. There was extensive necrosis of the tissue. Small to moderate amount of pus was expressed. Area was packed with gauze. Blood work showed elevated white count with normal lactate. CT of the pelvis showed left gluteal abscess with packing materials in place. Adjacent infiltrative changes within the left gluteal subcutaneous fat. No evidence of soft tissue gas. He was given IV vancomycin. He was then admitted. He was admitted to medical floor. ID consult was done. He was given IV vancomycin and Zosyn. Surgical evaluation was done. Tests patient has an open wound in the left buttock cheek with nonviable tissue and has significant cellulitis and edema with erythema and tenderness. He was given wound care. Wound culture showed growth of staph aureus. Zosyn was discontinued. He was continued on IV vancomycin. Full treatment was not carried out as patient left AGAINST MEDICAL ADVICE. FINAL DIAGNOSES: Left buttock abscess status post I&D and bedside debridement Leukocytosis, possible sepsis DISPOSITION: Patient left AGAINST MEDICAL ADVICE. I have been assigned to complete a discharge summary on this account, I was not involved with the patient's management.--MARY Barber Jacqueline Robles NP Aug 05, 2020 12:56
== END 2020-08-03 07:10 | disposition left against medical advice (07) | DRG 872 ==
LOC: EMR 04:56 → 4E 07:28 → EDBEDREQ 09:03
PROC: 0Y913ZZ Drainage of Left Buttock, Percutaneous Approach (ICD-10-PCS; principal; 2020-08-01)
PROC: 0JD93ZZ Extraction of Buttock Subcutaneous Tissue and Fascia, Percutaneous Approach (ICD-10-PCS; principal; 2020-08-01)
DX: A41.9 Sepsis, unspecified organism (principal); L02.31 Cutaneous abscess of buttock; F17.200 Nicotine dependence, unspecified, uncomplicated; Z59.0 Homelessness
CPT/HCPCS: 36415; 72193; 80048; 80202; 83605; 85007; 85025; 87070; 87181; 87205; 96365; 96366; 96367; 96375; 99285; J2405; S0077